=== PATIENT | male | born 1970 | race Caucasian/White ===

== ENCOUNTER 2017-05-28 21:23 | Observation (INO) | payer BC ==
[2017-05-28] MEDS ORDERED: Diltiazem 25 MG/5 ML SDV IVPUSH ONE (21:47)
--- NOTE | 2017-05-28 21:53 | EDM.PDOC ---
ED HPI GENERAL MEDICAL PROBLEM - General Chief Complaint: Cardiovascular Problem Stated Complaint: A FIB Time Seen by Provider: 05/28/17 21:25 Source of Information: Reports: Patient, Family History Limitations: Reports: No Limitations - History of Present Illness INITIAL COMMENTS - FREE TEXT/NARRATIVE: 46-year-old male with a history of atrial fibrillation 12 years ago has been doing fine, healthy, but tonight about 2-1/2 hours before coming into the emergency room he developed tachycardia and an irregular rhythm. He thinks it started because he was "laying around" all day and then ran up and down the basketball court a few times with his son. No chest pain or shortness of breath. He's had a few doses of cold medicine over the last few days and may be somewhat dehydrated. No fever or other illness other than a mild sore throat and cold 2 days ago. He did have a cardiology evaluation after his initial bout of atrial fibrillation and no significant abnormality was found. He has not had any large amount of alcohol this weekend. Onset: Sudden Duration: Hour(s): (2-1/2 hours) Severity: Moderate Associated Symptoms: Reports: No Other Symptoms Denies Pain Score (Numeric/FACES): 0 - Related Data Allergies Allergy/AdvReac Type Severity Reaction Status Date / Time No Known Allergies Allergy Verified 05/28/17 21:33 Home Meds: Home Meds NK [No Known Home Meds] 05/28/17 [History] Past Medical History Cardiovascular History: Reports: Afib Social & Family History - Tobacco Use Smoking Status *Q: Never Smoker - Caffeine Use Caffeine Use: Reports: Coffee - Recreational Drug Use Recreational Drug Use: No ED ROS GENERAL - Review of Systems Review Of Systems: See Below Constitutional: Denies: Fever, Chills HEENT: Reports: Other (Mild cold symptoms) Respiratory: Denies: Shortness of Breath, Cough Cardiovascular: Denies: Chest Pain GI/Abdominal: Denies: Abdominal Pain, Diarrhea, Nausea, Vomiting : Reports: No Symptoms Skin: Reports: No Symptoms Neurological: Reports: No Symptoms Psychiatric: Reports: No Symptoms ED EXAM, GENERAL - Physical Exam Exam: See Below Exam Limited By: No Limitations General Appearance: Alert, No Apparent Distress Respiratory/Chest: No Respiratory Distress, Lungs Clear Cardiovascular: Tachycardia, Irregularly Irregular GI/Abdominal: Soft, Non-Tender Extremities: Normal Inspection. No: Pedal Edema Neurological: Alert, Oriented Psychiatric: Normal Affect, Normal Mood Skin Exam: Warm, Dry EKG INTERPRETATION Rhythm: A-Fib Rate (Beats/Min): 160 ST-T: Normal Course - Vital Signs Last Recorded V/S: Last Vital Signs Temp 96.3 F 05/28/17 23:25 Pulse 110 H 05/29/17 00:04 Resp 15 05/29/17 00:04 BP 172/74 H 05/29/17 00:04 Pulse Ox 100 05/29/17 00:04 - Orders/Labs/Meds Orders: Active Orders 24 hr Category Date Time Status EKG Documentation Completion [RC] ASDIRECTED Care 05/28/17 22:36 Active Diltiazem [Cardizem] 100 mg Med 05/28/17 22:30 Active Sodium Chloride 0.9% [Normal Saline] 100 ml IV TITRATE Sodium Chloride 0.9% [Normal Saline] 1,000 ml Med 05/28/17 22:00 Active IV ASDIRECTED EKG 12 Lead [EK] Routine Ther 05/28/17 22:36 Ordered Medication Orders Acetaminophen (Tylenol) 650 mg PO Q4H PRN PRN Reason: Pain/Fever Aspirin (Aspirin) 81 mg PO BEDTIME DIA Calcium Carbonate/Glycine (Tums) 1,000 mg PO Q2H PRN PRN Reason: Indigestion Sodium Chloride (Normal Saline) 1,000 mls @ 250 mls/hr IV ASDIRECTED DIA Last Admin: 05/28/17 21:48 Dose: 250 mls/hr Diltiazem HCl 100 mg/ Sodium (Chloride) 100 mls @ 5 mls/hr IV TITRATE DIA; 5 MG /HR PRN Reason: Protocol Last Titration: 05/29/17 00:01 Dose: 10 mg/hr, 10 mls/hr Admin: 05/28/17 22:47 Dose: 5 mg/hr, 5 mls/hr Heparin Sodium/Dextrose (Heparin 25,000 Units In D5w 500 Ml) 25,000 units in 500 mls @ 0 mls/hr IV TITRATE DIA; 9.77 UNITS/KG/HR PRN Reason: Protocol Labs: Laboratory Tests 05/28/17 05/28/17 05/28/17 Range/Units 21:54 21:54 21:54 WBC 8.9 (4.5-11.0) K/uL RBC 5.70 (4.30-5.90) M/uL Hgb 15.9 H (12.0-15.0) g/dL Hct 45.5 (40.0-54.0) % MCV 80 (80-98) fL MCH 28 (27-31) pg MCHC 35 (32-36) % Plt Count 227 (150-400) K/uL Neut % (Auto) 64 (36-66) % Lymph % (Auto) 22 L (24-44) % [place] % (Auto) 12 H (2-6) % Eos % (Auto) 2 (2-4) % Baso % (Auto) 1 (0-1) % Sodium 141 (140-148) mmol/L Potassium 3.9 (3.6-5.2) mmol/L Chloride 106 (100-108) mmol/L Carbon Dioxide 24 (21-32) mmol/L Anion Gap 10.9 (5.0-14.0) mmol/L BUN 14 (7-18) mg/dL Creatinine 0.9 (0.8-1.3) mg/dL Est Cr Clr Drug Dosing 130.63 mL/min Estimated GFR (MDRD) > 60 (>60) Glucose 107 H (74-106) mg/dL Calcium 8.7 (8.5-10.1) mg/dL Troponin I < 0.017 (0.000-0.056) ng/mL TSH, Ultra Sensitive 3.205 (0.358-3.740) uIU/mL Meds: Medications Generic Name Dose Route Start Last Admin Trade Name Freq PRN Reason Stop Dose Admin Acetaminophen 650 mg 05/28/17 23:34 Tylenol PO Q4H PRN Pain/Fever Aspirin 81 mg 05/28/17 23:45 Aspirin PO BEDTIME DIA Calcium Carbonate/Glycine 1,000 mg 05/28/17 23:34 Tums PO Q2H PRN Indigestion Sodium Chloride 1,000 mls @ 250 mls/hr 05/28/17 22:00 05/28/17 21:48 Normal Saline IV 250 mls/hr ASDIRECTED DIA Administration Diltiazem HCl 100 mg/ Sodium 100 mls @ 5 mls/hr 05/28/17 22:30 05/29/17 00:01 Chloride IV 10 mg/hr TITRATE DIA 10 mls/hr Protocol Titration 5 MG/HR Heparin Sodium/Dextrose 25,000 units in 500 mls @ 0 mls/hr 05/29/17 00:15 Heparin 25,000 Units In D5w 500 Ml IV TITRATE DIA Protocol 9.77 UNITS/KG/HR Discontinued Medications Generic Name Dose Route Start Last Admin Trade Name Crys PRN Reason Stop Dose Admin Diltiazem HCl 25 mg 05/28/17 21:47 05/28/17 21:50 Diltiazem IVPUSH 05/28/17 21:48 25 mg ONETIME ONE Administration Heparin Sodium (Porcine) 5,000 units 05/29/17 00:10 Heparin Sodium IVPUSH 05/29/17 00:11 .BOLUS ONE Heparin Sodium (Porcine) Confirm 05/29/17 00:52 Heparin Sodium Administered 05/29/17 00:53 Dose 10,000 units .[address]TE .[facility] ONE - Re-Assessments/Exams Free Text/Narrative Re-Assessment/Exam: 05/28/17 21:53 EKG confirmed atrial fibrillation with rapid ventricular response. An IV was started, CBC, BMP, troponin and TSH were obtained. Patient was given 25 mg of IV Cardizem. 05/28/17 22:27 25 mg of IV Cardizem did slow his rate to 100 to 115, decreased his symptoms but he did not convert. 05/29/17 01:12 Cardizem drip was started and patient admitted by Dr Arcos. Electrical cardioversion in AM of not converting spontaneously overnight Departure - Departure Time of Disposition: 23:13 Disposition: Refer to Observation Condition: Fair Clinical Impression: Atrial fibrillation with rapid ventricular response - My Orders Last 24 Hours: My Active Orders 05/28/17 22:00 Sodium Chloride 0.9% [Normal Saline] 1,000 ml IV ASDIRECTED 05/28/17 22:30 Diltiazem [Cardizem] 100 mg Sodium Chloride 0.9% [Normal Saline] 100 ml IV TITRATE 05/28/17 22:36 EKG Documentation Completion [RC] ASDIRECTED EKG 12 Lead [EK] Routine - Assessment/Plan Last 24 Hours: My Active Orders 05/28/17 22:00 Sodium Chloride 0.9% [Normal Saline] 1,000 ml IV ASDIRECTED 05/28/17 22:30 Diltiazem [Cardizem] 100 mg Sodium Chloride 0.9% [Normal Saline] 100 ml IV TITRATE 05/28/17 22:36 EKG Documentation Completion [RC] ASDIRECTED EKG 12 Lead [EK] Routine
[2017-05-28] MEDS ORDERED: Sodium Chloride 0.9% 1,000 ML IV SCH (22:00)
[2017-05-28] MEDS: Diltiazem 100 MG in Sodium Chloride 0.9% 100 ML IV SCH (22:47)
[2017-05-28] MEDS ORDERED: Calcium Carbonate 500 MG Tab.Chew PO PRN (23:34)
[2017-05-28] MEDS ORDERED: Acetaminophen 325 MG Tab PO PRN (23:34)
[2017-05-28] MEDS ORDERED: Aspirin 81 MG Tab.Chew PO SCH (23:45)
[2017-05-29] MEDS ORDERED: Heparin Sodium 5,000 Units/ML Vial IVPUSH ONE ×2 (00:10→08:00)
[2017-05-29] MEDS ORDERED: Heparin Sodium/D5W 25,000 UNITS/500 ML BAG IV SCH (00:15)
[2017-05-29] MEDS ORDERED: Heparin Sodium 5,000 Units/ML Vial ONE (00:52)
--- NOTE | 2017-05-29 01:24 | HP ---
IDENTIFYING DATA: Domenic Mae is a 46-year-old male from [place], [place]. CHIEF COMPLAINT: Atrial fibrillation. HISTORY OF PRESENT ILLNESS: This adult male has a noted history of previous paroxysmal atrial fibrillation with presentation 12 years ago, managed with ER evaluation and elective cardioversion. He has had no chronic cardiovascular disease. Denying a history of congenital heart disease, pathologic murmur, rheumatic fever, ischemic heart disease, congestive heart failure, dependent edema, angina-like chest pain, syncope, near syncope, or unusual reduction in exercise tolerance. This weekend, he had a mild viral upper respiratory infection with noted malaise and sore throat without fever. He did use DayQuil approximately 18 hours ago, though used no other stimulant therapy. He is a drinker of 3-4 cups of coffee daily. He rarely uses alcohol and uses no nicotine-containing products including tobacco. After exercising with his adolescent son late today with a brief period of basketball play, he noted onset of palpitations and suspecting atrial fibrillation, he presented to the emergency room for evaluation. He has had no syncope, near syncope, chest pain, or shortness of breath. No headaches or visual distortion noted. He failed to convert to sinus rhythm with administration of IV diltiazem bolus. Therefore, he was placed on diltiazem drip and admitted as observation status to the critical care unit for ongoing monitoring. He denies a history of hyperlipidemia, hyperglycemia, diabetes, stroke, or hypertension. No history of chronic cardiovascular disease. PAST MEDICAL HISTORY: Previous hospitalization only for one prior episode of atrial fibrillation. He has had previous repair of a chainsaw laceration of the knee. No other surgical procedures. HABITS: Nonsmoker. Caffeine intake of 3-4 cups of coffee daily. Rare use of alcohol in social settings. No routine use of stimulant therapies. IMMUNIZATIONS: No recent vaccinations. MEDICATIONS: No regular medications. Did use DayQuil this weekend for reasons of an upper respiratory infection. ALLERGIES: NONE NOTED. 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 His accompanies him today. Typically, he remains moderately active, performs ADLs without assistance. FAMILY HISTORY: Notes his father and grandfather had history of cardiovascular disease including strokes and ischemic heart disease, developing in their 70s. No history of early onset of ischemic heart disease or sudden cardiac at a young age. REVIEW OF SYSTEMS: NEUROLOGIC: No history of stroke, seizures, or visual distortion. CARDIAC: As above. RESPIRATORY: No history of asthma, emphysema, chronic cough, tuberculosis, or sputum production. Recent URI as reported. GI: No history of hepatitis, jaundice, dyspepsia, abdominal surgery, or chronic abdominal disease. Bowel movements are regular. : No renal disease or nocturia. MUSCULOSKELETAL: Without complaints. PHYSICAL EXAMINATION: GENERAL: Appearance is that of an adult male, in no acute distress. VITAL SIGNS: Temperature 97.9 degrees Fahrenheit, pulse 155, atrial fibrillation by cardiac monitoring, rate slowing to 120 with diltiazem infusion, respiratory rate 20, blood pressure 130/60, O2 sats 94% on room air. HEENT: Hearing is intact. Pupils are reactive. Extraocular eye movements are intact. Sclerae anicteric. No oropharyngeal lesions or facial asymmetries. NECK: Brisk, mildly tachycardic, irregular carotid pulses. No bruits or JVD. LUNGS: Clear and non-tachypneic. Symmetrical aeration. HEART: Irregular without murmurs or gallops noted. ABDOMEN: Soft, nontender, and nondistended. Active sounds. No organomegaly. Good femoral pulses. No bruits heard. : Omitted. RECTAL: Omitted. EXTREMITIES: Warm, pink, and dry. Non-diaphoretic. No edema. No cyanosis. Good arterial pulses. LABORATORY DATA: On admission, WBC 8.9, hemoglobin 15.9, hematocrit 45.5, platelet count 227,000. Sodium 141, potassium 3.9, BUN 14, creatinine 0.9, glucose 107, calcium 8.7. Troponin less than 0.017. Atrial fibrillation with rapid ventricular response noted on initial cardiac monitoring. IMPRESSION: 1. Paroxysmal atrial fibrillation, with rapid ventricular rate. The patient noting a remote history with similar occurrence 12 years ago. 2. Recent acute upper respiratory infection, otherwise, in good health by the patient's report. PLAN: The patient failed to convert with bolus dose of diltiazem. Therefore, diltiazem infusion has been initiated. We will provide anticoagulant therapy with IV heparin. Low- dose aspirin is to be administered. We will monitor through the nighttime hours and if he fails to convert by a.m. and cardiac enzymes are within normal ranges, consider request for elective cardioversion. If chest pain, shortness of breath, syncope or near syncope develops, urgent cardioversion would be in order. Full code status is maintained. Nursing staff will call if other concerns arise. N.p.o. after midnight for anticipated potential cardioversion. Anticipate hospital stay of less than 48 hours. Vega Arcos MD /[id number]
[2017-05-29] MEDS: Diltiazem 100 MG in Sodium Chloride 0.9% 100 ML IV SCH (08:08)
[2017-05-29] MEDS ORDERED: FLU Vacc QS 2017-18 (36mos UP)/PF 60 MCG/0.5 ML Syringe IM ONE (10:00)
[2017-05-29] MEDS ORDERED: Propofol 200 MG/20 ML SDV ONE (11:00)
--- NOTE | 2017-05-29 11:09 | PCM.OPNOTE ---
- General Post-Op/Procedure Note Date of Surgery/Procedure: 05/29/17 Operative Procedure(s): Electrical cardioversion Pre Op Diagnosis: Atrial fibrillation with rapid ventricular response Post-Op Diagnosis: Atrial fibrillation successfully converted to sinus rhythm Anesthesia Technique: Moderate Sedation Primary Surgeon: Carlos Farley Anesthesia Provider: Navi Massey Complications: None Condition: Good Free Text/Narrative:: Mr. Mae is a 46-year-old gentleman who was admitted to the intensive care unit for management of paroxysmal atrial fibrillation with rapid ventricular response. He was treated initially with IV Cardizem bolus and continuous infusion of IV Cardizem. He remained in atrial fibrillation throughout the night and into the morning. We discussed ongoing options for management including rate control and anticoagulation versus electrical cardioversion. Patient has opted to proceed with cardioversion. Risks and goals of procedure reviewed with the patient and his and he's given consent to proceed. IV sedation was provided by Javy Araya from the anesthesia service, using IV propofol. When adequate sedation was achieved he was converted to sinus rhythm using 200 J of energy delivered in a synchronized fashion. Cardioversion was successful in converting to sinus rhythm. He was monitored in the intensive care unit until recovered from IV sedation.
--- NOTE | 2017-05-29 11:26 | PCM.DCSUM1 ---
Discharge Summary - Hospital Course Brief History: Mr. Mae is a 46-year-old gentleman who is admitted through the emergency department with atrial fibrillation and rapid ventricular response. - Discharge Data Discharge Date: 05/29/17 Discharge Disposition: Home, Self-Care 01 Condition: Good - Discharge Diagnosis/Problem(s) (1) Atrial fibrillation with rapid ventricular response SNOMED Code(s): 547935791199827 ICD Code: I48.91 - UNSPECIFIED ATRIAL FIBRILLATION Status: Acute Current Visit: Yes - Patient Summary/Data Operative Procedure(s) Performed: Electrical cardioversion Hospital Course: Mr. Mae is a 46-year-old gentleman who developed a rapid irregular heart rhythm and presented to the emergency department for further evaluation. On assessment in the emergency department was noted to be in atrial fibrillation with rapid ventricular response. He has one previous episode of atrial fibrillation with rapid ventricular response which occurred approximately 12 years ago. At that time he was cardioverted to sinus rhythm and has had no recurrent episodes since that time until last night. He been experiencing symptoms consistent with upper respiratory tract infection over the past few days and was physically active just prior to onset of the atrial fibrillation. In the emergency department was given a bolus of IV diltiazem and then started on a continuous infusion of diltiazem. He was admitted to the intensive care unit and remained on the diltiazem infusion through the night and remained in atrial fibrillation. We discussed options for management this morning including rate control and anticoagulation versus electrical cardioversion. He opted to proceed with cardioversion, risks and goals were reviewed with him and he gave consent to proceed. IV sedation was provided by the anesthesia service and he was successfully converted to sinus rhythm using 200 J of energy delivered in a synchronized fashion. He was awake and interactive after the procedure and remained in sinus rhythm through the rest of his hospital stay. Activity will be as tolerated and he will resume his usual diet. He's been instructed not to drive for a period of 24 hours after having received the IV sedation. Follow-up appointment will be scheduled with Dr. Nowak within one week. - Patient Instructions Diet: Usual Diet as Tolerated Activity: As Tolerated Driving: Do Not Drive (For 24 hours) Other/Special Instructions: Please schedule follow-up appointment with Dr. Nowak within one week. - Discharge Plan Home Medications: Home Meds NK [No Known Home Meds] 05/28/17 [History] Referrals: Jj Nowak MD [Primary Care Provider] - - Patient Data Vitals - Most Recent: Last Vital Signs Temp 97.4 F 05/29/17 07:00 Pulse 88 05/29/17 08:08 Resp 14 05/29/17 09:00 BP 127/79 05/29/17 09:00 Pulse Ox 99 05/29/17 09:00 Weight - Most Recent: 294 lb I&O - Last 24 hours: Intake & Output 05/28/17 05/29/17 05/29/17 22:59 06:59 14:59 Intake Total 1084 Balance 1084 Lab Results - Last 24 hrs: Laboratory Results - last 24 hr 05/29/17 05/29/17 05/29/17 Range/Units 00:01 07:12 07:12 APTT 26.0 L 35.2 (27.0-36.0) sec Troponin I < 0.017 (0.000-0.056) ng/mL Med Orders - Current: Current Medications Acetaminophen (Tylenol) 650 mg PO Q4H PRN PRN Reason: Pain/Fever Aspirin (Aspirin) 81 mg PO BEDTIME DIA Last Admin: 05/29/17 01:13 Dose: 81 mg Calcium Carbonate/Glycine (Tums) 1,000 mg PO Q2H PRN PRN Reason: Indigestion Sodium Chloride (Normal Saline) 1,000 mls @ 25 mls/hr IV ASDIRECTED DIA Last Admin: 05/28/17 21:48 Dose: 250 mls/hr Diltiazem HCl 100 mg/ Sodium (Chloride) 100 mls @ 5 mls/hr IV TITRATE DIA; 5 MG /HR PRN Reason: Protocol Last Admin: 05/29/17 08:08 Dose: 10 mg/hr, 10 mls/hr Heparin Sodium/Dextrose (Heparin 25,000 Units In D5w 500 Ml) 25,000 units in 500 mls @ 0 mls/hr IV TITRATE DIA; 9.77 UNITS/KG/HR PRN Reason: Protocol Last Titration: 05/29/17 08:24 Dose: 11.66 units/kg/hr, 31.1 mls/hr Discontinued Medications Diltiazem HCl (Diltiazem) 25 mg IVPUSH ONETIME ONE Stop: 05/28/17 21:48 Last Admin: 05/28/17 21:50 Dose: 25 mg Heparin Sodium (Porcine) (Heparin Sodium) 5,000 units IVPUSH .BOLUS ONE Stop: 05/29/17 00:11 Last Admin: 05/29/17 01:15 Dose: 5,000 units Heparin Sodium (Porcine) (Heparin Sodium) Confirm Administered Dose 10,000 units .ROUTE .STK-MED ONE Stop: 05/29/17 00:53 Last Admin: 05/29/17 01:24 Dose: Not Given Heparin Sodium (Porcine) (Heparin Sodium) 2,500 units IVPUSH .BOLUS ONE Stop: 05/29/17 08:01 Last Admin: 05/29/17 07:56 Dose: 2,500 units *Q Meaningful Use (DIS) - VTE *Q VTE Criteria *Q: - Stroke *Q Stroke Criteria *Q: - AMI *Q AMI Criteria *Q:
[2017-05-29 11:51] VITALS: BP 130/72
--- NOTE | 2017-05-30 12:12 | PN ---
DATE OF SERVICE: 05/29/2017 SUBJECTIVE: A 46-year-old male was admitted with an episode of paroxysmal atrial fibrillation with rapid ventricular rate with presentation of pulse rate of 155. Through the nighttime hours, he has rested comfortably. Denies subjective palpitations, syncope, near syncope, chest pain, or unusual shortness of breath. Sleeping intermittently. He has offered no other complaints. OBJECTIVE: VITAL SIGNS: Blood pressure 126/68, respiratory rate 16, temperature 35.7 degrees centigrade, pulse rate 90 with persistent atrial fibrillation noted by cardiac monitoring. NECK: Brisk, irregular carotid pulses. No JVD. LUNGS: Clear. HEART: Irregular, controlled rate. No murmurs or gallops noted. EXTREMITIES: Warm, pink, and dry. Good arterial pulses, non-diaphoretic, no pitting edema. IMPRESSION AND PLAN: Paroxysmal atrial fibrillation, persistent dysrhythmia noted by cardiac monitoring. Followup troponin is pending this morning. He remains on heparin and diltiazem infusions. If he fails to convert with pharmacologic therapies, we will consider elective electrical cardioversion this a.m. Maintain n.p.o. status in the interim. Vega Arcos MD /[id number]
== END 2017-05-29 11:49 | disposition home or self-care (01) ==
LOC: JP.ED 21:23 → JP.ICU 22:44
PROVIDERS: ADMIT Family Medicine; ATTEND Family Medicine
DX: I48.0 Paroxysmal atrial fibrillation (principal); Z79.82 Long term (current) use of aspirin; Z79.899 Other long term (current) drug therapy
CPT/HCPCS: 36415; 80048; 84443; 84484; 85025; 85730; 92960; 93005; 96361; 96365; 96366; 96367; 96376; 99285; A9270; G0378; J1644; J2704; J3490; J7030; J7040; 90686

== ENCOUNTER 2023-09-18 22:42 | Emergency (ER) | payer BC ==
[2023-09-18 23:01] VITALS: BP 148/78; PULSE 161
[2023-09-18] MEDS ORDERED: Propofol 200 MG/20 ML SDV ONE (23:16)
== END 2023-09-19 00:25 | disposition home or self-care (01) ==
LOC: JP.ED 22:42
DX: I48.91 Unspecified atrial fibrillation (principal)
CPT/HCPCS: 93005; 93010; 99284; J2704

== ENCOUNTER 2024-12-21 02:23 | Emergency (ER) | payer BC ==
[2024-12-21 02:34] VITALS: BP 147/82; PULSE 153
[2024-12-21 02:49] LABS: BASOPHILS ABSOLUTE AUTO 0.06 K/uL (0.00-0.10); BASOPHILS PERCENT AUTO 0.7 % (0.1-1.3); EOSINOPHILS ABSOLUTE AUTO 0.29 K/uL (0.00-0.40); EOSINOPHILS PERCENT AUTO 3.4 % (0.0-5.4); HEMATOCRIT 45.5 % (38.4-49.7); HEMOGLOBIN 15.6 g/dL (12.9-16.9); IMMATURE GRAN ABSOLUTE AUTO 0.03 K/uL (0.00-0.23); IMMATURE GRAN PERCENT AUTO 0.4 % (0.0-0.7); LYMPHOCYTES ABSOLUTE AUTO 3.15 K/uL (0.8-3.3); LYMPHOCYTES PERCENT AUTO 36.8 % (11.4-47.7); MEAN CORPUSCULAR HEMOGLOBIN 28.7 pg (31.6-35.5); MEAN CORPUSCULAR HGB CONC 34.3 g/dL (31.6-35.5); MEAN CORPUSCULAR VOLUME 83.6 fL (81.4-99.0); MONOCYTES ABSOLUTE AUTO 0.84 K/uL (0.20-0.90); MONOCYTES PERCENT AUTO 9.8 % (3.3-12.6); NEUTROPHILS ABSOLUTE AUTO 4.18 K/uL (1.0-7.6); NEUTROPHILS PERCENT AUTO 48.9 % (40.0-78.1); PLATELET COUNT,PLT 223 K/uL (130-375); RED BLOOD CELL COUNT 5.44 M/uL (4.14-5.76); WHITE BLOOD CELL COUNT,WBC 8.6 K/uL (3.2-11.0)
[2024-12-21 02:54] LABS: ANION GAP 11.6 mmol/L (5.0-14.0); CALCIUM 9.3 mg/dL (8.5-10.1); EST CRCL DRUG DOSING (CG) 118.78 mL/min
[2024-12-21] MEDS: Sodium Chloride 0.9% 10 ML Syringe FLUSH PRN (02:57)
[2024-12-21] MEDS: Diltiazem 25 MG/5 ML SDV IVPUSH ONE (02:57)
[2024-12-21 03:02] LABS: MAGNESIUM 1.9 mg/dL (1.8-2.4); TROPONIN I HIGH SENSITIVITY 8.2 pg/mL (<=60.3)
[2024-12-21] MEDS: Etomidate 2 MG/ML 10 ML SDV IVPUSH ONE (03:07)
== END 2024-12-21 04:05 | disposition home or self-care (01) ==
LOC: JP.ED 02:23
DX: I48.91 Unspecified atrial fibrillation (principal); Z86.16 Personal history of COVID-19; Z79.899 Other long term (current) drug therapy
CPT/HCPCS: 36415; 80048; 83735; 84484; 85025; 92960; 96374; 99285; J3490

== ENCOUNTER 2025-08-17 22:10 | Emergency (ER) | payer BC ==
[2025-08-17 22:31] LABS: BASOPHILS ABSOLUTE AUTO 0.07 K/uL (0.00-0.10); BASOPHILS PERCENT AUTO 0.9 % (0.1-1.3); EOSINOPHILS ABSOLUTE AUTO 0.20 K/uL (0.00-0.40); EOSINOPHILS PERCENT AUTO 2.6 % (0.0-5.4); IMMATURE GRAN ABSOLUTE AUTO 0.03 K/uL (0.00-0.23); IMMATURE GRAN PERCENT AUTO 0.4 % (0.0-0.7); LYMPHOCYTES ABSOLUTE AUTO 2.74 K/uL (0.8-3.3); LYMPHOCYTES PERCENT AUTO 35.0 % (11.4-47.7); MONOCYTES ABSOLUTE AUTO 0.74 K/uL (0.20-0.90); MONOCYTES PERCENT AUTO 9.5 % (3.3-12.6); NEUTROPHILS ABSOLUTE AUTO 4.04 K/uL (1.0-7.6); NEUTROPHILS PERCENT AUTO 51.6 % (40.0-78.1); PLATELET COUNT,PLT 222 K/uL (130-375); RED BLOOD CELL COUNT 5.51 M/uL (4.14-5.76); WHITE BLOOD CELL COUNT,WBC 7.8 K/uL (3.2-11.0)
[2025-08-17 22:52] VITALS: PULSE 135
[2025-08-17 22:58] LABS: A/G RATIO 1.3 (1.2-2.2); ALANINE AMINOTRANSFERASE,ALT 27 U/L (12-78); ASPARTATE AMNIOTRANSFERASE,AST 17 U/L (15-37); BILIRUBIN TOTAL 0.6 mg/dL (0.2-1.0); BLOOD UREA NITROGEN,BUN 17 mg/dL (7-18); CARBON DIOXIDE,CO2 28 mmol/L (21-32); CHLORIDE,CL 107 mmol/L (100-108); CREATININE 1.0 mg/dL (0.8-1.3); EST CRCL DRUG DOSING (CG) 118.78 mL/min; ESTIMATED GFR 90 mL/min (>60); GLUCOSE RANDOM 101 mg/dL (74-106); POTASSIUM,K 3.8 mmol/L (3.6-5.2); PROTEIN TOTAL,TP 7.3 g/dL (6.4-8.2); SODIUM,NA 143 mmol/L (140-148); TROPONIN I HIGH SENSITIVITY 7.9 pg/mL (<=60.3)
[2025-08-17] MEDS ORDERED: Propofol 200 MG/20 ML SDV ONE ×2 (23:07)
[2025-08-17] MEDS: Propofol 200 MG/20 ML SDV IVPUSH ONE (23:52)
[2025-08-18 00:25] VITALS: BP 126/80
== END 2025-08-17 23:58 | disposition home or self-care (01) ==
LOC: JP.ED 22:10
DX: I48.91 Unspecified atrial fibrillation (principal); Z86.16 Personal history of COVID-19; Z79.899 Other long term (current) drug therapy
CPT/HCPCS: 36415; 80053; 84484; 85025; 92960; 93005; 96360; 99152; 99285; J2704; J7030; 00410-QZ; 93010; 99284